=== PATIENT | male | born 2000 | race Hispanic/Latino ===

== ENCOUNTER 2024-04-23 16:14 | Emergency (ER) | payer OTHER ==
[2024-04-23] MEDS ORDERED: KETOROLAC 30 MG/ML INJ ONE (16:28)
[2024-04-23] MEDS ORDERED: HYDROCODONE/APAP 5/325 MG TAB ONE ×2 (16:28→20:37)
--- NOTE | 2024-04-23 18:04 | RAD REPORT ---
EXAM:Mandible <4 Views HISTORY: [facility] MAIN Facial pain;Deformity;Swelling;Trauma Bed Name: 10 COMPARISON: None TECHNIQUE: 3 views of the mandible FINDINGS: Linear lucency at the level of the left mandibular angle extending to the root of the uneru pted posterior-most molar. Mildly displaced fracture along the right mandibular body, approximately 2.5 cm from the mandibular symphysis. The visualized paranasal sinuses are well aerated. IMPRESSION: Mildly displaced right mandibular body fracture. Another suspected hairline fracture along the left angle of mandible.
--- NOTE | 2024-04-23 19:38 | RAD REPORT ---
EXAMINATION: CT MAXILLOFACIAL WITHOUT CONTRAST CLINICAL INDICATION: [facility] MAIN right mandibular fx;Facial pain;Deformity Bed Name: 10 TECHNIQUE: Axial images were obtained through the facial bones and orbits without intravenous contras t. Sagittal and coronal reconstructions were created from the data. One or more of the following dose reduction techniques were used: Automated exposure control, adjustment of the mA and/or kV accor ding to patient size, and/or iterative reconstruction. Unless otherwise specified, incidental findings do not require dedicated imaging follow-up. COMPARISON: No prior exam. FINDINGS: SOFT TISSUE: Soft tissue swelling and small hematoma along the right para midline lower jaw. BONES: Mildly displaced longitudinally oriented fractures along the body of the mandible, to the righ t of the mandibular symphysis, reaching the second of the right mandibular canine root, resulting in some widening. Nondisplaced longitudinally oriented fractures of the left angle of mandible, reach ing the socket of the unerupted posterior most left mandibular molar ORBITS: The globes are intact. No intraorbital hemorrhage or mass. SINUSES: The paranasal sinuses and tympanomastoid cavities are predominantly clear. IMPRESSION: Right para midline mandibular body fracture and left angle of mandible fracture as above.
--- NOTE | 2024-04-23 19:46 | ER ---
Nurse's Notes [facility] Name: Allison Garcia Jr Age: 24 yrs Sex: Male : 2000 Arrival Date: 04/23/2024 Time: 16:14 Bed 10 Private MD: Diagnosis: Fracture of mandible-right para midline body and left angle Presentation: 04/23 16:29 Chief complaint: Patient states: fell last night and injured the right side of his iw lower jaw. Coronavirus screen: At this time, the client does not indicate any symptoms associated with coronavirus-19. Ebola Screen: No symptoms or risks identified at this time. Initial Sepsis Screen: Does the patient meet any 2 criteria? No. Patient's initial sepsis screen is negative. Does the patient have a suspected source of infection? No. Patient's initial sepsis screen is negative. Risk Assessment: Do you want to hurt yourself or someone else? Patient reports no desire to harm self or others. Onset of symptoms was April 23, 2024. 16:29 Method Of Arrival: Law Enforcement: [place] [employer] iw 16:29 Acuity: ARMANDO 3 iw Historical: - Allergies: 16:30 No Known Allergies; iw - Home Meds: 16:30 None [Active]; iw - PMHx: 16:30 None; iw - PSHx: 16:30 None; iw Screenin:30 Abuse screen: Denies threats or abuse. Nutritional screening: No deficits noted. iw Tuberculosis screening: No symptoms or risk factors identified. 20:46 [facility] ED Fall Risk Assessment (Adult) History of falling in the last 3 months, vc1 including since admission No falls in past 3 months (0 pts) Confusion or Disorientation No (0 pts) Intoxicated or Sedated No (0 pts) Impaired Gait No (0 pts) Mobility Assist Device Used No (0 pt) Altered Elimination No (0 pt) Score/Fall Risk Level 0 - 2 = Low Risk Oriented to surroundings, Maintained a safe environment, Educated pt \T\ family on fall prevention, incl call for assistance when getting out of bed. Assessment: 16:30 General: Appears in no apparent distress. Behavior is calm, cooperative. Pain: iw Complains of pain in face Pain currently is 8 out of 10 on a pain scale. Neuro: Level of Consciousness is awake, alert, obeys commands, Oriented to person, place, time, situation, Moves all extremities. Full function. Cardiovascular: Patient's skin is warm and dry. Respiratory: Respiratory effort is even, unlabored, Respiratory pattern is regular, symmetrical. Derm: Skin is intact, is healthy with good turgor. Musculoskeletal: Range of motion: Swelling present in chin, right jaw and left jaw. 17:30 Reassessment: Patient appears in no apparent distress at this time. Patient and/or iw family updated on plan of care and expected duration. Pain level reassessed. Patient is alert, oriented x 3, equal unlabored respirations, skin warm/dry/pink. Vital Signs: 16:29 BP 121 / 76; Pulse 89; Resp 16; Temp 98.1; Pulse Ox 100% on R/A; iw [place] Coma Score: 19:30 Eye Response: spontaneous(4). Motor Response: obeys commands(6). Verbal Response: sb4 oriented(5). Total: 15. 19:32 Eye Response: spontaneous(4). Motor Response: obeys commands(6). Verbal Response: sb4 oriented(5). Total: 15. ED Course: 16:21 Patient arrived in ED. iw 16:21 Lilli Villela PA-C is PHCP. sb4 16:21 Santiago Negro DO is Attending Physician. sb4 16:27 Lizeth Key, DAQUAN is Primary Nurse. iw 16:30 Triage completed. iw 16:30 Arm band placed on. iw 17:33 Mandible (<4 Views) XRAY In Process Unspecified. EDMS 18:21 Facial Bones W/O Con CT In Process Unspecified. EDMS 19:00 Bed in low position. Security at bedside. vc1 20:46 No provider procedures requiring assistance completed. Patient did not have IV access vc1 during this emergency room visit. Administered Medications: 16:58 Drug: Ketorolac IM 30 mg IM once Route: IM; Site: right deltoid; iw 16:58 Drug: HYDROcodone-acetaminophen PO 5 mg-325 mg 1 tabs PO once Route: PO; iw 19:38 CANCELLED (Physician Discretion): cefazolin1 grams 50 ml IVPB once over 30 mins sb4 20:22 CANCELLED (Physician Discretion): ampicillin-sulbactam sodium1.5 grams IVPB once over sb4 30 mins; (mix in 100 mL NS) 20:43 Drug: Amoxicillin-Clavulanate PO 875 mg PO once Route: PO; vc1 20:44 Follow up: Response: Medication administered at discharge. vc1 20:43 Drug: HYDROcodone-acetaminophen PO 5 mg-325 mg 1 tabs PO once Route: PO; vc1 20:44 Follow up: Response: Medication administered at discharge. vc1 Medication: 18:30 VIS not applicable for this client. iw Outcome: 19:46 ER care complete, transfer ordered by MD. sb4 20:24 Discharge ordered by MD. sb4 20:46 Discharged to Law Enforcement vc1 20:46 Condition: good 20:46 Discharge instructions given to patient, correctional program specialist Instructed on discharge instructions, follow up and referral plans. medication usage, Demonstrated understanding of instructions, follow-up care, medications, 20:46 Prescriptions given X 3, 20:48 Patient left the ED. vc1 Signatures: Dispatcher [employer] Lizeth Perez RN RN iw Ada Leary RN RN vc1 Lilli Villela PA-C PA-C sb4 Corrections: (The following items were deleted from the chart) 16:30 16:30 PSHx: Unable to Obtain; iw iw
--- NOTE | 2024-04-23 19:46 | EDPHYS ---
Physician Documentation [facility] Name: Allison Garcia Jr Age: 24 yrs Sex: Male : 2000 Arrival Date: 04/23/2024 Time: 16:14 Bed 10 Private MD: ED Physician Santiago Negro HPI: 04/23 19:30 This 24 yrs old Male presents to ER via Law Enforcement with complaints of Jaw sb4 Injury. 19:30 The patient or guardian reports deformity, injury, pain, swelling, tenderness. The sb4 complaints affect the right jaw. Context of injury: resulted from a fall. Onset: The symptoms/episode began/occurred 2 day(s) ago. Associated signs and symptoms: The patient has no apparent associated signs or symptoms, Loss of consciousness: This patient did not experience any loss of consciousness. Pertinent negatives: double vision, incontinence, neck pain, vomiting. inmate states he "fell" 2 days ago and injured his right jaw. reports pain and swelling to the area. no trismus, handing secretions. Historical: - Allergies: 16:30 No Known Allergies; iw - Home Meds: 16:30 None [Active]; iw - PMHx: 16:30 None; iw - PSHx: 16:30 None; iw ROS: 19:30 Constitutional: Negative for fever, chills, and weight loss, sb4 19:30 MS/extremity: Positive for injury or acute deformity, deformity, pain, swelling, tenderness, of the right jaw, 19:30 All other systems are negative, Exam: 19:30 Constitutional: This is a well developed, well nourished patient who is awake, alert, sb4 and in no acute distress. Eyes: Extra-ocular motions intact. Periorbital areas with no swelling, redness, or edema. ENT: Mucous membranes moist. Skin: Warm, dry with normal turgor. Normal color with no rashes, no lesions, and no evidence of cellulitis. 19:30 Head/face: Noted is swelling, that is moderate, of the right jaw, tenderness, that is moderate, of the right jaw, 20:29 Chest/axilla: Inspection: ecchymosis, that is mild, of the anterior aspect of right sb4 upper chest and anterior aspect of left upper chest Vital Signs: 16:29 BP 121 / 76; Pulse 89; Resp 16; Temp 98.1; Pulse Ox 100% on R/A; iw [place] Coma Score: 19:30 Eye Response: spontaneous(4). Motor Response: obeys commands(6). Verbal Response: sb4 oriented(5). Total: 15. 19:32 Eye Response: spontaneous(4). Motor Response: obeys commands(6). Verbal Response: sb4 oriented(5). Total: 15. MDM: 16:22 Medical Screening Exam initiated sb4 19:32 Data reviewed: vital signs, nurses notes, radiologic studies, I have discussed the 4 patient's presentation/case with the attending Emergency Department Physician;. 19:44 Counseling: I had a detailed discussion with the patient and/or guardian regarding the 4 historical points, exam findings, and any diagnostic results supporting the discharge/admit diagnosis, radiology results, the need to transfer to another facility, [facility] does not immediately have the required specialist. 20:23 Management of patient was discussed with the following: Account Clerk: OMFS with [address], Dr. Devin Alvarez, declines transfer, states patient can follow up outpatient- start on amoxicillin and clear liquid diet. 04/23 16:25 Order name: Mandible (<4 Views) XRAY; Complete Time: 18:05 sb4 04/23 17:54 Order name: Facial Bones W/O Con CT; Complete Time: 19:39 sb4 Administered Medications: 16:58 Drug: Ketorolac IM 30 mg IM once Route: IM; Site: right deltoid; iw 16:58 Drug: HYDROcodone-acetaminophen PO 5 mg-325 mg 1 tabs PO once Route: PO; iw 19:38 CANCELLED (Physician Discretion): cefazolin1 grams 50 ml IVPB once over 30 mins sb4 20:22 CANCELLED (Physician Discretion): ampicillin-sulbactam sodium1.5 grams IVPB once over sb4 30 mins; (mix in 100 mL NS) 20:43 Drug: Amoxicillin-Clavulanate PO 875 mg PO once Route: PO; vc1 20:44 Follow up: Response: Medication administered at discharge. vc1 20:43 Drug: HYDROcodone-acetaminophen PO 5 mg-325 mg 1 tabs PO once Route: PO; vc1 20:44 Follow up: Response: Medication administered at discharge. vc1 Disposition: 19:43 I was immediately available on-site in the Emergency Department for consultation in the ms3 care of the patient. Disposition Summary: 04/23/24 20:24 Discharge Ordered Problem: new(04/23/24 20:24) sb4 Symptoms: are unchanged(04/23/24 20:24) sb4 Condition: Stable(04/23/24 20:24) sb4 Diagnosis - Fracture of mandible - right para midline body and left angle sb4 Followup: sb4 - With: Private Physician - When: 2 - 3 days - Reason: Recheck today's complaints, Re-evaluation by your physician Discharge Instructions: - Discharge Summary Sheet sb4 - Clear Liquid Diet, Adult, [id number] sb4 - Mandibular Fracture, [id number] sb4 Forms: - Antibiotic Education sb4 - Patient Portal Instructions sb4 - Leadership Thank You Letter sb4 Prescriptions: - Amoxicillin 875 mg Oral Tablet - take 1 tablet ORAL route every 12 hours for 10 days; 20 tablet; Refills: 0, sb4 Product Selection Permitted - Ibuprofen 800 mg Oral Tablet - take 1 tablet ORAL route every 8 hours As needed take with food; 30 tablet; sb4 Refills: 0, Product Selection Permitted - Tylenol 325 mg Oral tablet - take 2 tablets ORAL route every 6 hours as needed; 30 tablet; Refills: 0, sb4 Product Selection Permitted Signatures: Dispatcher [employer] Lizeth Perez RN RN Santiago Negro DO DO ms3 Ada Leary RN RN vc1 Lilli Villela PA-C PA-C sb4 Corrections: (The following items were deleted from the chart) 16:30 16:30 PSHx: Unable to Obtain; iw 19:38 19:38 ceFAZolin IVPB 1 grams 50 ml IVPB once over 30 mins ordered. sb4 sb4 20:17 19:46 omfs sb4 sb4 20:17 19:46 [facility] sb4 sb4 20:17 19:46 Higher level of care sb4 sb4 20:17 19:46 Fair sb4 sb4 20:17 19:46 new sb4 sb4 20:17 19:46 are unchanged sb4 sb4 20:17 19:46 Right para midline manidbular body fracture and left angle of mandible fracture sb4 sb4 20:22 19:38 Ampicillin-Sulbactam Sodium IVPB 1.5 grams IVPB once over 30 mins; (mix in 100 mL sb4 NS) ordered. sb4 19:38 IV Saline Lock ordered. sb4 sb4
[2024-04-23] MEDS ORDERED: AMOX/K CLAV 875 MG TAB ONE (20:36)
[2024-04-23 23:19] VITALS: BP 121/76; TEMP 98.1; O2SAT 100
== END 2024-04-23 20:48 | disposition home or self-care (01) ==
LOC: ER 16:14
DX: S02.651A Fracture of angle of right mandible, initial encounter for closed fracture (principal); S02.601A Fracture of unspecified part of body of right mandible, initial encounter for closed fracture
CPT/HCPCS: 70100; 70486; 76377; 96372; 99285